=== PATIENT | male | born 1950 | race African-American/Black ===

== ENCOUNTER 2018-02-07 12:05 | Emergency (ER) | payer OTHER ==
[~2018-02-07] VITALS: Ht 188 cm; Wt 84.8 kg
[2018-02-07 12:57] LABS: ABSOLUTE BASOPHILS 0.1 thou/uL (0.0-0.2); ABSOLUTE MONOCYTES 0.5 thou/uL (0.0-1.2); WBC 3.8 thou/uL (4.0-11.0)
[2018-02-07 13:00] LABS: ABSOLUTE EOSINOPHILS 0.3 thou/uL (0.0-0.7); ABSOLUTE LYMPHOCYTES 1.3 thou/uL (0.8-5.3); ABSOLUTE NEUTROPHILS 1.6 thou/uL (1.6-8.1); BASOPHILS 2.3 %; EOSINOPHILS 8.8 %; HEMATOCRIT 38.2 % (42.0-52.0); LYMPHOCYTES 33.8 %; MCH 31.9 pg (26.0-34.0); MCHC 34.2 g/dL (28.0-37.0); MCV 93.4 fL (80.0-100.0); MONOCYTES 12.1 %; MPV 7.8 fl. (7.2-11.1); NUCLEATED RBCS 0 /100WBC; PLATELET COUNT* 179 thou/uL (150-400); RBC 4.08 mil/uL (4.50-6.00); RDW-CV 13.2 % (10.5-14.5)
[2018-02-07 13:06] LABS: CALCIUM 8.7 mg/dL (8.5-10.1); CREATININE 1.1 mg/dL (0.6-1.3); POTASSIUM 4.7 mmol/L (3.5-5.1)
[2018-02-07 13:09] LABS: APTT 28.9 Seconds (25.0-31.3); PROTIME 9.9 Seconds (9.20-11.50)
[2018-02-07 13:21] LABS: ALBUMIN 3.8 g/dL (3.4-5.0)
[2018-02-07 13:35] LABS: TROPONIN-I LEVEL 0.07 ng/mL (<0.06)
[2018-02-07 16:56] LABS: URINE BILIRUBIN NEGATIVE (Negative); URINE BLOOD 1+ (Negative); URINE CLARITY CLEAR; URINE COLOR YELLOW; URINE GLUCOSE-RANDOM NEGATIVE (Negative); URINE KETONES TRACE (Negative); URINE LEUKOCYTES-REFLEX NEGATIVE (Negative); URINE NITRITE-REFLEX NEGATIVE (Negative); URINE PROTEIN TRACE (Negative); URINE SPECIFIC GRAVITY >= 1.030 (1.005-1.030); URINE UROBILINOGEN 0.2 E.U./dl (0.2-1.0)
[2018-02-07 17:05] LABS: SQUAMOUS 0-3 Few /LPF (0-3); URINE RBC 3-10 Few /HPF (0-2); URINE WBC-REFLEX 0-5 Rare /HPF (0-5)
[2018-02-07 17:06] LABS: BACTERIA-REFLEX 1-9 Few /HPF (None Seen); CASTS None Seen /LPF (None Seen); CRYSTALS None Seen /LPF (None Seen); MUCUS 0-3 Light strn/LPF (None Seen)
[2018-02-07 17:08] LABS: AMP/METHAMP Negative (Negative); BARBITURATES Negative (Negative); BENZODIAZEPINES Negative (Negative); COCAINE POSITIVE (Negative); METHADONE Negative (Negative); OPIATES Negative (Negative); PCP Negative (Negative); THC Negative (Negative)
[2018-02-07 18:35] VITALS: BP 173/97
--- NOTE | 2018-02-08 16:21 | EKG ---
[place] [address] ELECTROCARDIOGRAM REPORT Name: JOHNY BISHOP Room: [facility]#: [id number] Admission: 02/07/18 Attend Phys: Discharge: 02/07/18 Date of : 54 Report #: [id number] THIS REPORT FOR: //name// [facility] ED Test Date: 2018-02-07 Test Time: 11:59:36 Pat Name: JOHNY BISHOP Department: Room: Gender: M Block Paver: KAROL : 1950 Requested By: Monique Contreras Order Number: [id number] MD: Bib Wood Measurements Intervals [place] Rate: 63 P: 51 RI: 133 QRS: 8 QRSD: 102 T: 49 QT: 435 QTc: 446 Interpretive Statements Sinus rhythm Left ventricular hypertrophy Artifact in lead(s) I,II,III,aVR,aVL,aVF No previous ECG available for comparison Electronically Signed On 02-08-2018 16:21:10 CDT by Bib Wood [email or web address] <ELECTRONICALLY SIGNED> By: Bib Wood MD, [facility] 02/08/18 1621 [id number] Bib Wood MD, [facility] /EPI
== END 2018-02-07 18:35 | disposition short-term general hospital (02) ==
LOC: M.ERS 12:05
PROVIDERS: Personal Emergency Response Attendant
DX: R07.89 Other chest pain (principal); R79.89 Other specified abnormal findings of blood chemistry; I10 Essential (primary) hypertension; E78.00 Pure hypercholesterolemia, unspecified; F41.9 Anxiety disorder, unspecified; F17.210 Nicotine dependence, cigarettes, uncomplicated; Z79.899 Other long term (current) drug therapy